=== PATIENT | female | born 1960 | race Caucasian/White ===

== ENCOUNTER 2021-06-22 10:15 | Emergency (ER) | payer OTHER ==
[2021-06-22 10:36] VITALS: BP 118/69; PULSE 77; TEMP 98; BMI 29.2
[2021-06-22] MEDS ORDERED: ACETAMINOPHEN 500 MG TABLET (FP) PO ONE (12:30)
[2021-06-22] MEDS ORDERED: ACETAMINOPHEN 325 MG TABLET (FP) ONE (13:00)
== END 2021-06-22 13:43 | disposition home or self-care (01) ==
LOC: JER 10:15
DX: I80.03 Phlebitis and thrombophlebitis of superficial vessels of lower extremities, bilateral (principal); M79.604 Pain in right leg
CPT/HCPCS: 93970; 99284-25

== ENCOUNTER 2024-05-03 19:22 | Emergency (ER) | payer OTHER ==
[2024-05-03 19:49] VITALS: BP 134/81; PULSE 93; RESP 18; TEMP 98.4; BMI 28.8
[2024-05-03] MEDS ORDERED: METOCLOPRAMIDE HCL 10 MG TABLET (FP) PO ONE (20:27)
[2024-05-03] MEDS ORDERED: ACETAMINOPHEN 325 MG TABLET (FP) ONE (20:27)
[2024-05-03] MEDS: ACETAMINOPHEN 500 MG TABLET (FP) PO ONE (20:29)
[2024-05-03] MEDS: METOCLOPRAMIDE HCL 10 MG TABLET (FP) PO ONE (20:29)
== END 2024-05-03 21:27 | disposition home or self-care (01) ==
LOC: JER 19:22
DX: R51.9 Headache, unspecified (principal)
CPT/HCPCS: 99283-25